=== PATIENT | female | born 1955 | race Caucasian/White ===

== ENCOUNTER 2017-07-30 15:19 | Emergency (ER) | payer BC ==
[2017-07-30] MEDS: LIDOCAINE WITH 8.4% SOD BICARB 3 ML DISP.SYRIN. INJ ×2 (15:58)
== END 2017-07-30 17:07 | disposition home or self-care (01) ==
LOC: ER 15:19
DX: S01.511A Laceration without foreign body of lip, initial encounter (principal); S61.411A Laceration without foreign body of right hand, initial encounter; S80.02XA Contusion of left knee, initial encounter; S80.01XA Contusion of right knee, initial encounter; S60.512A Abrasion of left hand, initial encounter; Z88.5 Allergy status to narcotic agent; Z90.49 Acquired absence of other specified parts of digestive tract; W01.198A Fall on same level from slipping, tripping and stumbling with subsequent striking against other object, initial encounter; Y93.89 Activity, other specified; Y92.89 Other specified places as the place of occurrence of the external cause; Y99.8 Other external cause status
CPT/HCPCS: 12011; 73130; 99284

== ENCOUNTER 2017-08-02 06:04 | Emergency (ER) | payer BC | END 2017-08-02 08:05 | disposition home or self-care (01) | LOC: ER 06:04 | DX: S01.511D Laceration without foreign body of lip, subsequent encounter (principal); Z88.5 Allergy status to narcotic agent; Z90.49 Acquired absence of other specified parts of digestive tract; W18.39XD Other fall on same level, subsequent encounter | CPT/HCPCS: 99281 ==

== ENCOUNTER → 2021-03-03 | Outpatient (CLI) | payer BC, MEDICARE, OTHER ==
[2017-08-02 06:10] VITALS: BP 165/77
--- NOTE | 2021-03-03 08:47 | KCIC ---
INDICATION: Screening for osteopenia/osteoporosis. Reason: AGE-RELATED BONE LOSS / Spl. Instructions : / History: COMPARISON: None. TECHNIQUE: Bone densitometry was performed through the lumbar spine and proximal femur. IMPRESSION: Lumbar Spine: BMD: 0.85 T-Score: -1.8 Range: Osteopenic Proximal Femur: BMD: 0.8 T-Score: -1.2 Range: Osteopenic World [employer] Organization Criteria for Bone Density: T-Score: > -1.0: Normal Range < -1.0 to -2.5: Osteopenic Range < -2.5: Osteoporotic Range Electronically signed by: Karl Ireland MD (03/03/2021 8:44 AM) [id number]
== END ==
LOC: KCIC DEXA 08:03
PROVIDERS: ATTEND Family Medicine
DX: M85.89 Other specified disorders of bone density and structure, multiple sites (principal)
CPT/HCPCS: 77080